=== PATIENT | female | born 1995 | race Caucasian/White ===

== ENCOUNTER 2019-05-29 21:47 | Emergency (ER) | payer BC ==
--- NOTE | 2019-05-29 22:14 | EDM.PDOC ---
ED HPI GENERAL MEDICAL PROBLEM - General Chief Complaint: Cardiovascular Problem Stated Complaint: HEART RACING Time Seen by Provider: 05/29/19 21:54 Source of Information: Reports: Patient History Limitations: Reports: No Limitations - History of Present Illness INITIAL COMMENTS - FREE TEXT/NARRATIVE: Patient is a 23-year-old female who presents with complaints of palpitations. She recently had gastric sleeve done on 19 May. States that she stills was to be on a pured diet but she ate some chicken tortilla soup with some small beans for dinner. She was feeling well and went to bed. While lying in bed she began to get the sensation that her heart was racing and lightheaded. On her watch, her heart rate jumped from the 70s to the 90s up to about 115 and then went back down to the 70s. She states that this occurred a couple times lasting around 5 minutes total but has resolved since coming to the ER. She has had no increased abdominal pain or chest pain with this. She denies any caffeine or alcohol use. She does have hypothyroidism and takes 120 mcg of thyroid [place]; however, patient states that she was out of her medication for quite a while and just started taking it again yesterday. She has no chronic cardiac additions - Related Data Allergies Allergy/AdvReac Type Severity Reaction Status Date / Time No Known Allergies Allergy Verified 05/29/19 21:58 Home Meds: Home Meds Thyroid [[place] Thyroid] 120 mg PO DAILY 05/29/19 [History] Past Medical History HEENT History: Reports: None Cardiovascular History: Reports: None Respiratory History: Reports: None Genitourinary History: Reports: Urinary Incontinence METABOLIC SPECIALIST History: Reports: None Musculoskeletal History: Reports: None Neurological History: Reports: None Psychiatric History: Reports: None Endocrine/Metabolic History: Reports: Hypothyroidism, Obesity/BMI 30+ Hematologic History: Reports: None Immunologic History: Reports: None Oncologic (Cancer) History: Reports: None Dermatologic History: Reports: Eczema - Infectious Disease History Infectious Disease History: Reports: None - Past Surgical History GI Surgical History: Reports: Bariatric Procedure Social & Family History - Tobacco Use Smoking Status *Q: Never Smoker - Caffeine Use Caffeine Use: Reports: None - Recreational Drug Use Recreational Drug Use: No ED ROS GENERAL - Review of Systems Review Of Systems: Comprehensive ROS is negative, except as noted in HPI. ED EXAM, GENERAL - Physical Exam Exam: See Below Exam Limited By: No Limitations General Appearance: Alert, WD/WN, No Apparent Distress Respiratory/Chest: No Respiratory Distress, Lungs Clear, Normal Breath Sounds, No Accessory Muscle Use, Chest Non-Tender Cardiovascular: Normal Peripheral Pulses, Regular Rate, Rhythm, No Edema, No Gallop, No JVD, No Murmur, No Rub Neurological: Alert, Oriented, CN II-XII Intact, Normal Cognition, Normal Gait, Normal Reflexes, No Motor/Sensory Deficits Psychiatric: Normal Affect, Normal Mood Skin Exam: Warm, Dry, Intact, Normal Color, No Rash Course - Vital Signs Last Recorded V/S: Last Vital Signs Temp 98.2 F 05/29/19 21:54 Pulse 64 05/29/19 23:20 Resp 15 05/29/19 23:20 BP 108/72 05/29/19 23:20 Pulse Ox 98 05/29/19 23:20 - Orders/Labs/Meds Orders: Active Orders 24 hr Category Date Time Status EKG 12 Lead [EKG Documentation Completion] [RC] ROUTINE Care 05/29/19 22:04 Active EKG Documentation Completion [RC] STAT Care 05/29/19 22:07 Inactive Holter Monitor 48 Hours [RC] .PRN Care 05/29/19 23:38 Active Labs: Laboratory Tests 05/29/19 05/29/19 05/29/19 Range/Units 22:50 22:50 22:50 WBC 7.45 (3.98-10.04) K/mm3 RBC 4.47 (3.98-5.22) M/mm3 Hgb 12.6 (11.2-15.7) gm/dl Hct 39.0 (34.1-44.9) % MCV 87.2 (79.4-94.8) fl MCH 28.2 (25.6-32.2) pg MCHC 32.3 (32.2-35.5) g/dl RDW Std Deviation 39.7 (36.4-46.3) fL Plt Count 196 (182-369) K/mm3 MPV 11.3 (9.4-12.3) fl Neut % (Auto) 44.0 (34.0-71.1) % Lymph % (Auto) 41.7 (19.3-51.7) % [place] % (Auto) 9.9 (4.7-12.5) % Eos % (Auto) 3.6 (0.7-5.8) Baso % (Auto) 0.7 (0.1-1.2) % Neut # (Auto) 3.27 (1.56-6.13) K/mm3 Lymph # (Auto) 3.11 (1.18-3.74) K/mm3 [place] # (Auto) 0.74 H (0.24-0.36) K/mm3 Eos # (Auto) 0.27 (0.04-0.36) K/mm3 Baso # (Auto) 0.05 (0.01-0.08) K/mm3 Sodium 143 (136-145) mEq/L Potassium 3.6 (3.5-5.1) mEq/L Chloride 108 H (98-107) mEq/L Carbon Dioxide 25 (21-32) mEq/L Anion Gap 13.6 (5-15) BUN 11 (7-18) mg/dL Creatinine 0.8 (0.55-1.02) mg/dL Est Cr Clr Drug Dosing 87.98 mL/min Estimated GFR (MDRD) > 60 (>60) mL/min BUN/Creatinine Ratio 13.8 L (14-18) Glucose 101 (74-106) mg/dL Calcium 9.0 (8.5-10.1) mg/dL Magnesium 2.0 (1.8-2.4) mg/dl Total Bilirubin 0.3 (0.2-1.0) mg/dL AST 19 (15-37) U/L ALT 37 (14-59) U/L Alkaline Phosphatase 52 (46-116) U/L Total Protein 7.2 (6.4-8.2) g/dl Albumin 3.7 (3.4-5.0) g/dl Globulin 3.5 gm/dL Albumin/Globulin Ratio 1.1 (1-2) TSH 3rd Generation 120.650 H (0.358-3.74) uIU/mL - Re-Assessments/Exams Free Text/Narrative Re-Assessment/Exam: 05/29/19 23:03 EKG was normal. Hematology showed a TSH elevated at 120. Pt was not taking her thryoid medication for quite awhile, but did start taking it again yesterday. She states that her TSH does go very high when she doesn't take it. Recommended that she continue to take this medication as previously prescribed. Patient will be discharged home with a Holter monitor and instructions to follow-up with her primary care provider next week. Discharge instructions as documented. Departure - Departure Time of Disposition: 23:03 Disposition: Home, Self-Care 01 Condition: Good Clinical Impression: Palpitations Instructions: Palpitations, [id number] Referrals: Molly Busby [employer] [Primary Care Provider] - Forms: ED Department Discharge Additional Instructions: You were seen in the emergency department today for heart palpitations. Your work-up included an EKG as well as blood work. Your work-up was normal with the exception of your TSH being elevated; however, this is to be expected since you were not taking your thyroid medication until yesterday. You have been sent home on a 48-hour Holter monitor. Follow the instructions at were given to you in the emergency department and return this in 48 hours. Recommend that you call to schedule follow-up appointment with your primary care provider towards the middle or end of next week to discuss the results. If you should experience any worsening symptoms, please do not hesitate to return to the emergency department. Sepsis Event Note - Evaluation Sepsis Screening Result: No Definite Risk - Focused Exam Vital Signs: Vital Signs Pulse Resp BP Pulse Ox 05/29/19 23:20 64 15 108/72 98 Date Exam was Performed: 05/30/19 Time Exam was Performed: 11:18 - My Orders Last 24 Hours: My Active Orders 05/29/19 22:04 EKG 12 Lead [EKG Documentation Completion] [RC] ROUTINE 05/29/19 22:07 EKG Documentation Completion [RC] STAT 05/29/19 23:38 Holter Monitor 48 Hours [RC] .PRN - Assessment/Plan Last 24 Hours: My Active Orders 05/29/19 22:04 EKG 12 Lead [EKG Documentation Completion] [RC] ROUTINE 05/29/19 22:07 EKG Documentation Completion [RC] STAT 05/29/19 23:38 Holter Monitor 48 Hours [RC] .PRN
== END 2019-05-30 00:05 | disposition home or self-care (01) ==
LOC: JD.ED 21:47
DX: R00.2 Palpitations (principal); E03.9 Hypothyroidism, unspecified; E66.9 Obesity, unspecified; Z68.41 Body mass index [BMI] 40.0-44.9, adult; Z79.899 Other long term (current) drug therapy
CPT/HCPCS: 36415; 80053; 83735; 84443; 85025; 93005; 93010; 93225; 93226; 99283; 99285-25